=== PATIENT | female | born 1955 | race Caucasian/White ===

== ENCOUNTER 2019-04-15 23:14 | Inpatient (IN) | payer OTHER ==
[~2019-04-15] VITALS: Ht 157.5 cm; Wt 68.0 kg
[2019-04-15 23:36] VITALS: Ht 157.5 cm; Wt 68.0 kg
[2019-04-16 01:05] LABS: RED CELL DISTRIBUTION WIDTH 13.8 % (11.5-14.5)
[2019-04-16 01:06] LABS: PLATELET COUNT 248 x10^3mcL (130-400)
[2019-04-16 01:07] LABS: BASOPHIL % 2.9 % (0-2)
[2019-04-16 01:13] LABS: CALCIUM 9.9 mg/dL (8.5-10.1); CARBON DIOXIDE 33.1 mmol/L (21-32); CHLORIDE SERUM 103 mmol/L (98-107); CREATININE SERUM 0.7 mg/dL (0.6-1.0); GFR1 > 60 mL/min; GLUCOSE SERUM 151 mg/dL (74-106); POTASSIUM SERUM 4.2 mmol/L (3.5-5.1); SODIUM SERUM 144 mmol/L (136-145)
[2019-04-16 01:18] LABS: ALBUMIN 3.9 g/dL (3.4-5.0); ALKALINE PHOSPHATASE 92 U/L (46-116); ALT/SGPT 63 U/L (14-59); AST/SGOT 30 U/L (15-37); BILIRUBIN TOTAL 0.4 mg/dL (0.20-1.00); LIPASE 62 IU/L (73-393); TOTAL PROTEIN, SERUM 8.1 g/dL (6.4-8.2)
[2019-04-16 03:41] LABS: MAGNESIUM 2.1 mg/dL (1.8-2.4); PHOSPHOROUS 3.5 mg/dL (2.5-4.9)
[2019-04-16 03:43] LABS: CHOLESTEROL/HDL RATIO 4.2
[2019-04-16 04:51] VITALS: BP 150/72
[2019-04-16 06:53] LABS: BASOPHIL % 0.2 % (0-2); PLATELET COUNT 216 x10^3mcL (130-400)
[2019-04-16 06:54] LABS: RED CELL DISTRIBUTION WIDTH 14.6 % (11.5-14.5)
[2019-04-16 07:00] LABS: CALCIUM 9.2 mg/dL (8.5-10.1); CHLORIDE SERUM 106 mmol/L (98-107); CREATININE SERUM 0.7 mg/dL (0.6-1.0); GFR1 > 60 mL/min; GLUCOSE SERUM 157 mg/dL (74-106); POTASSIUM SERUM 4.1 mmol/L (3.5-5.1); SODIUM SERUM 144 mmol/L (136-145)
[2019-04-16 09:30] VITALS: BP 132/62
[2019-04-16 13:11] LABS: microscopic required? NO
[2019-04-16 13:36] LABS: urine erythrocyte NEGATIVE (NEGATIVE)
[2019-04-16 14:49] LABS: AMPHETAMINE QUAL UR NONE DETECTED (See below)
[2019-04-16 18:01] VITALS: BP 107/65
[2019-04-16 20:46] VITALS: BP 125/54
[2019-04-17 05:20] VITALS: BP 108/61
[2019-04-17 07:19] LABS: BASOPHIL % 0.5 % (0-2); PLATELET COUNT 202 x10^3mcL (130-400)
[2019-04-17 07:23] LABS: CALCIUM 8.5 mg/dL (8.5-10.1); CARBON DIOXIDE 29.2 mmol/L (21-32); CHLORIDE SERUM 109 mmol/L (98-107); CREATININE SERUM 0.7 mg/dL (0.6-1.0); GFR1 > 60 mL/min; GLUCOSE SERUM 108 mg/dL (74-106); MAGNESIUM 2.3 mg/dL (1.8-2.4); PHOSPHOROUS 3.7 mg/dL (2.5-4.9); POTASSIUM SERUM 3.9 mmol/L (3.5-5.1); RED CELL DISTRIBUTION WIDTH 14.6 % (11.5-14.5); SODIUM SERUM 145 mmol/L (136-145)
[2019-04-17 09:14] VITALS: BP 129/60
[2019-04-17 13:13] VITALS: BP 129/60
== END 2019-04-17 14:00 | disposition home or self-care (01) | DRG 247 ==
LOC: ED 23:14 → MU 04-16 02:52
PROVIDERS: Emergency Medicine; ADMIT Family Medicine
PROC: 0D9670Z Drainage of Stomach with Drainage Device, Via Natural or Artificial Opening (ICD-10-PCS; principal; 2019-04-16)
DX: K56.7 Ileus, unspecified (principal); N17.0 Acute kidney failure with tubular necrosis; E78.5 Hyperlipidemia, unspecified; K59.00 Constipation, unspecified; A08.4 Viral intestinal infection, unspecified; R73.03 Prediabetes
CPT/HCPCS: 83880; A9698; J2270; J2405; J7030; Q0092; Q9967